=== PATIENT | female | born 1970 | race Caucasian/White ===

== ENCOUNTER → 2024-10-20 | Outpatient (CLI) | payer SELFPAY ==
--- NOTE | 2024-10-20 07:44 | BI_ITS ---
EXAM: SCRN MAMM (CAD)W/CHRISTIE BILAT DATE: 10/20/2024 CLINICAL HISTORY: F, Age 54 y/o , SCREENING BREAST CANCER RISK ASSESSMENT: Not assessed. TECHNIQUE: Bilateral screening digital breast tomosynthesis with 2D and 3D images. Computer aided detection. COMPARISON: Prior exam(s) dated November 16, 2022.. FINDINGS: TISSUE DENSITY: The breast tissue is heterogenously dense, which may obscure small masses. Bilateral Breast Mammographic Findings: No significant masses, calcifications or other abnormalities are identified. No suspicious masses, areas of developing architectural distortion, or suspicious calcifications. There has been no significant interval change. BI/SCRN MAMM (CAD)W/CHRISTIE BILAT IMPRESSION: OVERALL FINAL ASSESSMENT: BIRADS 1 NEGATIVE RECOMMENDATION: Routine annual follow-up in 1 Year A letter with findings and recommendations will be mailed to the patient. Reading Location: [place] [id number]
== END | disposition home or self-care (01) ==
PROVIDERS: PCP Nurse Practitioner Family; Referring Provider Nurse Practitioner Family; Visit Provider Nurse Practitioner Family
DX: Z12.31 Encounter for screening mammogram for malignant neoplasm of breast (principal)
CPT/HCPCS: 77063; 77067